=== PATIENT | male | born 1955 | race American Indian/Alaskan Native ===

== ENCOUNTER 2020-07-28 12:11 | Emergency (ER) | payer BC, OTHER ==
[2020-07-28 12:15] VITALS: BMI 23.6
[2020-07-28] MEDS ORDERED: BAMLANIVIMAB 700 MG in SODIUM CHLORIDE 180 ML IVPB ONE (13:44)
[2020-07-28 15:48] LABS: HEMATOCRIT 39.6 % (35.4-49); HEMOGLOBIN 13.8 GM/dL (11.7-16.9); MCH 29.5 pg (25.7-33.7); MCHC 34.8 g/dl (32.0-35.9); MEAN CELL VOLUME 84.6 fl (80-96); MEAN PLT VOLUME 9.5 fl (7.5-11.1); PLATELET COUNT 184 K/MM3 (134-434); RBC 4.68 M/mm3 (4.00-5.60); RDW 12.9 % (11.9-15.9); WHITE BLOOD COUNT 6.7 K/mm3 (4.0-10.0)
[2020-07-28 15:53] LABS: BLOOD UREA NITROGEN 9.6 mg/dL (7-18); CALCIUM 8.8 mg/dL (8.5-10.1)
[2020-07-28 15:55] LABS: CREATININE 1.2 mg/dL (0.55-1.3)
[2020-07-28 18:38] VITALS: BP 158/82; PULSE 93; TEMP 98.5
== END 2020-07-28 18:43 | disposition home or self-care (01) ==
LOC: JER 12:11 → JCOVINFU 12:11
DX: U07.1 COVID-19 (principal)
CPT/HCPCS: 36415; 80048; 85027; 85379; 93005; 93010; 99284-25; M0239; Q0239